=== PATIENT | male | born 1970 | race Caucasian/White ===

== ENCOUNTER 2017-05-26 11:50 | Observation (INO) | payer OTHER ==
[2017-05-26] VITALS (8 sets, daily range): BP systolic 146–180; BP diastolic 86–98; PULSE 70–95; RESP 16–18; TEMP 97.7–98.5; O2SAT 95–99
[~2017-05-26] VITALS: Ht 172.7 cm; Wt 81.0 kg
[~2017-05-26 11:50] MED LIST: LISI-363 PO
[2017-05-26 13:22] LABS: AUTOMATED NEUTROPHIL # 5.3 TH/MM3 (1.8-7.7); BASOPHIL # 0.1 TH/MM3 (0-0.2); BASOPHIL % 0.7 % (0.0-2.0); EOSINOPHIL # 0.3 TH/MM3 (0-0.4); EOSINOPHIL % 2.9 % (0.0-4.0); HEMATOCRIT 46.8 % (39.0-51.0); HEMOGLOBIN 16.5 GM/DL (13.0-17.0); LYMPH % 27.1 % (9.0-44.0); LYMPHOCYTE # 2.5 TH/MM3 (1.0-4.8); MEAN CELL VOLUME 97.4 FL (80.0-100.0); MEAN CORPUSCULAR HEMOGLOBIN 34.4 PG (27.0-34.0); MEAN CORPUSCULAR HGB CONC 35.3 % (32.0-36.0); MONO % 10.6 % (0.0-8.0); NEUT % 58.7 % (16.0-70.0); PLATELET COUNT 170 TH/MM3 (150-450); RED BLOOD COUNT 4.81 MIL/MM3 (4.50-5.90); RED CELL DISTRIBUTION WIDTH 12.6 % (11.6-17.2); WHITE BLOOD COUNT 9.1 TH/MM3 (4.0-11.0)
[2017-05-26 13:36] LABS: PROTHROMBIN TIME - PATIENT 10.2 SEC (9.8-11.6)
[2017-05-26 13:48] LABS: BICARBONATE 26.2 MEQ/L (21.0-32.0); BLOOD UREA NITROGEN 9 MG/DL (7-18); CALCIUM 9.2 MG/DL (8.5-10.1); CHLORIDE 105 MEQ/L (98-107); CREATININE 0.76 MG/DL (0.60-1.30); GLOMERULAR FILTRATION RATE 109 ML/MIN (>89); GLUCOSE,RANDOM 102 MG/DL (74-106); SODIUM (NA) 139 MEQ/L (136-145)
[2017-05-26 13:52] LABS: TROPONIN I LESS THAN 0.02 NG/ML (0.02-0.05)
--- NOTE | 2017-05-26 13:54 | RADRPT ---
EXAM DATE/TIME: 05/26/2017 13:05 [facility] COMPARISON: No previous studies available for comparison. INDICATIONS : Chest pain MEDICAL HISTORY : Hypertension. SURGICAL HISTORY : None. ENCOUNTER: Initial ACUITY: 1 day PAIN SCORE: 3/10 LOCATION: Left chest FINDINGS: PA and lateral views of the chest demonstrate the lungs to be symmetrically aerated without evidence of mass, infiltrate or effusion. The cardiomediastinal contours are unremarkable. Osseous structure s are intact. CONCLUSION: 1. No acute cardiopulmonary findings are identified. Poncho Ugarte MD on May 26, 2017 at 13:51 Board Certified Radiologist. This report was verified electronically.
[2017-05-26] MEDS ORDERED: LISI-515 PO (15:16)
[2017-05-26] MEDS ORDERED: AMLO5TAB2 PO (15:16)
[2017-05-26] MEDS ORDERED: CLON0.1T PO (15:16)
--- NOTE | 2017-05-26 15:19 | PD ---
HPI Chief Complaint: Cardiac Complaint Time Seen by Provider: 15:06 Travel History International Travel<30 days: No Contact w/Intl Traveler<30days: No Traveled to known affect area: No History of Present Illness HPI patient with chest pain today. awoke with it. smoker, htn. has never had heart disease but mother had at age 55. describes chest pressure radiating to back, moderate in intensity. started this morning. PFSH Past Medical History Heart Rhythm Problems: No Cardiac Catheterization: No Cardiovascular Problems: Yes High Cholesterol: No Congestive Heart Failure: No Diabetes: No Hypertension: Yes Past Surgical History Coronary Artery Bypass Graft: No Oral Surgery: Yes ([place]IS[place] TEETH EXTRACTION) Social History Alcohol Use: Yes (6 BEERS PER DAY) Tobacco Use: Yes (1 PPD) Substance Use: No Allergies-Medications (Allergen,Severity, Reaction): Coded Allergies: No Known Allergies (Unverified Allergy, Unknown, 05/26/17) Reported Meds & Prescriptions Reported Meds & Active Scripts Active Reported Clonidine (Clonidine HCl) 0.1 Mg Tab 0.1 Mg PO HS Amlodipine (Amlodipine Besylate) 5 Mg Tab 5 Mg PO DAILY Lisinopril 20 Mg Tab 20 Mg PO DAILY Review of Systems Except as stated in HPI: all other systems reviewed are Neg Physical Exam Narrative GENERAL: wd wn in nad SKIN: Warm and dry. HEAD: Atraumatic. Normocephalic. EYES: Pupils equal and round. No scleral icterus. No injection or drainage. ENT: No nasal bleeding or discharge. Mucous membranes pink and moist. NECK: Trachea midline. No JVD. CARDIOVASCULAR: Regular rate and rhythm. RESPIRATORY: No accessory muscle use. trace expiratory wheezing. Breath sounds equal bilaterally. GASTROINTESTINAL: Abdomen soft, non-tender, nondistended. Hepatic and splenic margins not palpable. MUSCULOSKELETAL: Extremities without clubbing, cyanosis, or edema. No obvious deformities. NEUROLOGICAL: Awake and alert. No obvious cranial nerve deficits. Motor grossly within normal limits. Five out of 5 muscle strength in the arms and legs. Normal speech. PSYCHIATRIC: Appropriate mood and affect; insight and judgment normal. Data Data Last Documented VS Orders Orders Electrocardiogram (05/26/17 12:30) Complete Blood Count With Diff (05/26/17 12:30) Basic Metabolic Panel (Bmp) (05/26/17 12:30) Ckmb (Isoenzyme) Profile (05/26/17 12:30) Troponin I (3/8/18 12:30) Iv Access Insert/Monitor (05/26/17 12:30) Ecg Monitoring (05/26/17 12:30) Oxygen Administration (05/26/17 12:30) Oximetry (05/26/17 12:30) Chest, Pa & Lat (05/26/17 ) Act Partial Throm Time (Ptt) (05/26/17 12:30) Prothrombin Time / Inr (Pt) (05/26/17 12:30) CKMB (05/26/17 12:40) CKMB% (05/26/17 12:40) Aspirin Chew (Aspirin Chew) (05/26/17 15:30) Nitroglycerin Sl (Nitrostat Sl) (05/26/17 15:30) Admit Order (Ed Use Only) (05/26/17 ) Labs Laboratory Tests Test 05/26/17 12:40 White Blood Count 9.1 TH/MM3 Red Blood Count 4.81 MIL/MM3 Hemoglobin 16.5 GM/DL Hematocrit 46.8 % Mean Corpuscular Volume 97.4 FL Mean Corpuscular Hemoglobin 34.4 PG Mean Corpuscular Hemoglobin Concent 35.3 % Red Cell Distribution Width 12.6 % Platelet Count 170 TH/MM3 Mean Platelet Volume 9.0 FL Neutrophils (%) (Auto) 58.7 % Lymphocytes (%) (Auto) 27.1 % Monocytes (%) (Auto) 10.6 % Eosinophils (%) (Auto) 2.9 % Basophils (%) (Auto) 0.7 % Neutrophils # (Auto) 5.3 TH/MM3 Lymphocytes # (Auto) 2.5 TH/MM3 Monocytes # (Auto) 1.0 TH/MM3 Eosinophils # (Auto) 0.3 TH/MM3 Basophils # (Auto) 0.1 TH/MM3 CBC Comment AUTO DIFF Differential Comment AUTO DIFF CONFIRMED Prothrombin Time 10.2 SEC Prothromb Time International Ratio 1.0 RATIO Activated Partial Thromboplast Time 27.8 SEC Blood Urea Nitrogen 9 MG/DL Creatinine 0.76 MG/DL Random Glucose 102 MG/DL Calcium Level 9.2 MG/DL Sodium Level 139 MEQ/L Potassium Level 3.8 MEQ/L Chloride Level 105 MEQ/L Carbon Dioxide Level 26.2 MEQ/L Anion Gap 8 MEQ/L Estimat Glomerular Filtration Rate 109 ML/MIN Total Creatine Kinase 214 U/L Creatine Kinase MB 1.9 NG/ML Troponin I LESS THAN 0.02 NG/ML MDM Medical Decision Making Medical Screen Exam Complete: Yes Emergency Medical Condition: Yes Differential Diagnosis ACS, pneumonia unlikely, non-STEMI, coronary artery disease Narrative Course chest pain with risk factors and initial workup negative. recommended admission to [facility] and he is agreeable. Diagnosis Primary Impression: Chest pain Admitting Information Admitting Physician Requests: Observation Scripts Aspirin (Tgt Aspirin) 81 Mg Chw 81 MG PO DAILY for CAD, #30 EA 0 Refills Prov: Les Red MD 05/28/17 Metoprolol Tartrate (Metoprolol Tartrate) 25 Mg Tab 12.5 MG PO BID for HTN, #60 TAB 0 Refills Hold for systolic blood pressure in 100 mm HG or below or for Heart rate in 60 or below Prov: Les Red MD 05/28/17 Atorvastatin (Atorvastatin) 80 Mg Tab 80 MG PO HS for CAD, #30 TAB 0 Refills Prov: Les Red MD 05/28/17 Ticagrelor (Brilinta) 90 Mg Tab 90 MG PO BID for CAD, #60 TAB 0 Refills Prov: Les Red MD 05/28/17 Condition: Stable JoseM anuel Lindsay MD May 26, 2017 15:19
[2017-05-26] MEDS ORDERED: IOHEXOL 350 MG/ML 100 ML BTL (for Cath Lab) OTHER ONE (15:22)
[2017-05-26] MEDS ORDERED: IOHEXOL 350 MG/ML 50 ML BTL (for Cath Lab) OTHER ONE (15:22)
[2017-05-26] MEDS ORDERED: NITROGLYCERIN 0.4 MG SL 25 TABS/BTL SL ONE (15:30)
[2017-05-26] MEDS ORDERED: ASPIRIN 81 MG CHEW TAB CHEW ONE (15:30)
[2017-05-26] MEDS ORDERED: SODIUM CHLORIDE 0.9% FLUSH 10 ML FLUSH IV FLUSH PRN (17:15)
[2017-05-26] MEDS ORDERED: ONDANSETRON HCL 4 MG/2 ML VIAL IV PUSH PRN (17:15)
[2017-05-26] MEDS ORDERED: NITROGLYCERIN 0.4 MG SL 25 TABS/BTL SL PRN (17:15)
[2017-05-26] MEDS ORDERED: ACETAMINOPHEN 500 MG CPLT PO PRN (17:15)
[2017-05-26 18:22] LABS: TROPONIN I LESS THAN 0.02 NG/ML (0.02-0.05)
--- NOTE | 2017-05-26 18:48 | HHI.HP ---
HPI Primary Care Physician Urgent care in [place] Chief Complaint Chest pressure History of Present Illness 47-year-old male with history of hypertension and current smoker presents to emergency room for further evaluation of chest pressure. 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 During the afternoon noticed chest pressure. Location left anterior chest, radiation substernally. No associated symptoms nausea, vomiting, dyspnea, or diaphoresis. [place] dizzy. Duration chest pressure constant , dizziness resolved. No known precipitating or relieving factors. Endorses similar pain and symptoms in the past 3 years ago when diagnosed with hypertension. Since discomfort reminded him of when he was diagnosed with hypertension, drove to [facility] to check his blood pressure. Reports bp 170/100, therefore came to ER. Reports compliance with BP medications. Review of Systems General: No fatigue,weakness, fever, chills, or recent illness change in appetite. Has been encouraged onset health. HEENT: No [place], no vision changes, no nasal congestion or drainage, no dysphasia CV: Continues to have chest pressure as stated above, left anterior chest severity "moderate and substernal discomfort "mild." RESP: No SOB, cough, or recent URI. Current smoker, reports noticing wheezing x2 months. GI: No nausea, vomiting, bowel changes, diarrhea, constipation, pain, distention , melena, blood in the stool. No unintentional weight gain or weight loss : No dysuria, urgency, frequency EXT: No lower leg edema, no paraesthesias MS: No discomfort or change in ROM NEURO: No change in memory, dizziness, difficulty with balance, LOC, motor/ sensory deficits PSYCH: No anxiety, depression, suicidal ideation SKIN: No rashes, no concerning lesions Past Family Social History Allergies: Coded Allergies: No Known Allergies (Unverified Allergy, Unknown, 05/26/17) Past Medical History Hypertension, current smoker Past Surgical History [place] teeth extraction Reported Medications Reported Meds & Active Scripts Active Reported Clonidine (Clonidine HCl) 0.1 Mg Tab 0.1 Mg PO HS Amlodipine (Amlodipine Besylate) 5 Mg Tab 5 Mg PO DAILY Lisinopril 20 Mg Tab 20 Mg PO DAILY Active Ordered Medications Current Medications Medications (Trade) Dose Ordered Sig/Rubio Route Start Time Stop Time Status Last Admin (NS Flush) 2 ml UNSCH PRN IV FLUSH 05/26/17 17:15 (NS Flush) 2 ml BID IV FLUSH 05/26/17 21:00 (Tylenol) 500 mg Q4H PRN PO 05/26/17 17:15 (Zofran Inj) 4 mg Q6H PRN IV PUSH 05/26/17 17:15 (Nitrostat Sl) 0.4 mg Q5M PRN SL 05/26/17 17:15 (Aspirin) 325 mg DAILY PO 05/27/17 09:00 Family History Noncontributory for early onset cardiovascular disease. Mother required CABG age 60. Social History Known hypertension. No known diabetes, hyperlipidemia, or coronary artery disease. Current smoker 1pack/daily. Endorse drinking 6 beers nightly. . Past cardiac testing 08/17/13 Lexiscan-unremarkable study Physical Exam Vital Signs Vital Signs Date Time Temp Pulse Resp B/P (MAP) Pulse Ox O2 Delivery O2 Flow Rate FiO2 05/26/17 18:24 05/26/17 18:00 76 18 160/86 (110) 96 Room Air 05/26/17 17:04 70 18 180/96 (124) 96 Room Air 05/26/17 15:24 18 99 Room Air 05/26/17 15:14 88 18 146/90 (108) 99 Room Air 05/26/17 15:13 96 18 97 Room Air 05/26/17 12:28 97.7 78 16 169/94 (119) 96 Physical Exam GENERAL: Alert WN, WD, NAD, pleasant, male HEAD: NC, AT EYES: Sclera clear, conjunctiva without injection, pupils equal and round ENT: Mucous membranes pink and moist NECK: Supple, no masses, trachea midline CV: RRR, without murmur, rub, gallop, no JVD, S1-S2 no S3-S4. No carotid bruits RESP: Expiratory wheeze throughout bilateral, no crackles, wheeze, rhonchi, symmetrical chest rise, nonlabored, able to speak in full sentences ABD: Soft, NT, ND, no masses, positive bowel tones EXT: Pulses +24, no dependent edema MS: Normal tone 4 extremities, nontender, no obvious deformities, full range of motion NEURO: CN II through CN XII grossly intact, motor strength 5/5 PSYCH: A+O 3, pleasant affect, appropriate speech, mood, insight and judgment SKIN: Normal turgor, normal texture, no lesions, no rashes, brisk cap refill, even hair distribution Laboratory Laboratory Tests Test 05/26/17 12:40 05/26/17 17:05 White Blood Count 9.1 Red Blood Count 4.81 Hemoglobin 16.5 Hematocrit 46.8 Mean Corpuscular Volume 97.4 Mean Corpuscular Hemoglobin 34.4 Mean Corpuscular Hemoglobin Concent 35.3 Red Cell Distribution Width 12.6 Platelet Count 170 Mean Platelet Volume 9.0 Neutrophils (%) (Auto) 58.7 Lymphocytes (%) (Auto) 27.1 Monocytes (%) (Auto) 10.6 Eosinophils (%) (Auto) 2.9 Basophils (%) (Auto) 0.7 Neutrophils # (Auto) 5.3 Lymphocytes # (Auto) 2.5 Monocytes # (Auto) 1.0 Eosinophils # (Auto) 0.3 Basophils # (Auto) 0.1 CBC Comment AUTO DIFF Differential Comment AUTO DIFF CONFIRMED Prothrombin Time 10.2 Prothromb Time International Ratio 1.0 Activated Partial Thromboplast Time 27.8 Blood Urea Nitrogen 9 Creatinine 0.76 Random Glucose 102 Calcium Level 9.2 Sodium Level 139 Potassium Level 3.8 Chloride Level 105 Carbon Dioxide Level 26.2 Anion Gap 8 Estimat Glomerular Filtration Rate 109 Total Creatine Kinase 214 194 Creatine Kinase MB 1.9 1.8 Troponin I LESS THAN 0.02 LESS THAN 0.02 Result Diagram: 05/26/17 1240 05/26/17 1240 Imaging Last 48 hours Impressions Chest X-Ray 05/26/17 0000 Signed Impressions: Service Date/Time: May 13:05 - CONCLUSION: 1. No acute cardiopulmonary findings are identified. Poncho Ugarte MD Course EKG Normal sinus rhythm, no ST or T-segment changes Caprini VTE Risk Assessment Caprini VTE Risk Assessment: No/Low Risk (score <= 1) Caprini Risk Assessment Model Point Value = 1 Point Value = 2 Point Value = 3 Point Value = 5 Age 41-60 Minor surgery BMI > 25 kg/m2 Swollen legs Varicose veins or History of unexplained or recurrent spontaneous Oral contraceptives or hormone replacement Sepsis (< 1 month) Serious lung disease, including pneumonia (< 1 month) Abnormal pulmonary function Acute myocardial infarction Congestive heart failure (< 1 month) History of inflammatory bowel disease Medical patient at bed rest Age 61-74 Arthroscopic surgery Major open surgery (> 45 min) Laparoscopic surgery (> 45 min) Malignancy Confined to bed (> 72 hours) Immobilizing plaster cast Central venous access Age >= 75 History of VTE Family history of VTE Factor V Leiden Prothrombin [id number] Lupus anticoagulant Anticardiolipin antibodies Elevated serum homocysteine Heparin-induced thrombocytopenia Other congenital or acquired thrombophilia Stroke (< 1 month) Elective arthroplasty Hip, pelvis, or leg fracture Acute spinal cord injury (< 1 month) Prophylaxis Regimen Total Risk Factor Score Risk Level Prophylaxis Regimen 0-1 Low Early ambulation 2 Moderate Order ONE of the following: *Sequential Compression Device (SCD) *Heparin 5000 units SQ BID 3-4 Higher Order ONE of the following medications: *Heparin 5000 units SQ TID *Enoxaparin/Lovenox 40 mg SQ daily (WT < 150 kg, CrCl > 30 mL/min) *Enoxaparin/Lovenox 30 mg SQ daily (WT < 150 kg, CrCl > 10-29 mL/min) *Enoxaparin/Lovenox 30 mg SQ BID (WT < 150 kg, CrCl > 30 mL/min) AND/OR *Sequential Compression Device (SCD) 5 or more Highest Order ONE of the following medications: *Heparin 5000 units SQ TID (Preferred with Epidurals) *Enoxaparin/Lovenox 40 mg SQ daily (WT < 150 kg, CrCl > 30 mL/min) *Enoxaparin/Lovenox 30 mg SQ daily (WT < 150 kg, CrCl > 10-29 mL/min) *Enoxaparin/Lovenox 30 mg SQ BID (WT < 150 kg, CrCl > 30 mL/min) AND *Sequential Compression Device (SCD) Assessment and Plan Assessment and Plan #1 Atypical chest pain-admitted chest pain center. Rule out with 3 sets of EKGs , cardiac enzymes, and monitored to monitor overnight. Will be seen and evaluated by Dr. Andrew Agosto in a.m. Discussed likely of completing cardiac testing has been ruled out overnight. Patient is agreeable to plan of care. #2 Hypertension-continue lisinopril, amlodipine, and clonidine #3 Tobacco use-she'll encouraged and stressed the importance of tobacco cessation. Started to quit smoking. Discussed tobacco free [place] services available. Carrol Hercules May 26, 2017 18:48
[2017-05-26] MEDS ORDERED: cloNIDine HCL 0.1 MG TAB PO PRN (19:00)
[2017-05-26] MEDS: amLODIPine BESYLATE 5 MG TAB PO SCH (19:00)
[2017-05-26] MEDS: SODIUM CHLORIDE 0.9% FLUSH 10 ML FLUSH IV FLUSH SCH (20:16)
[2017-05-26] MEDS ORDERED: RESP: ALBUTEROL 2.5 MG/3 ML NEB (PRN) INH (20:45)
[2017-05-26 21:49] LABS: TROPONIN I LESS THAN 0.02 NG/ML (0.02-0.05)
[2017-05-27] VITALS (15 sets, daily range): BP systolic 120–156; BP diastolic 75–99; PULSE 61–95; RESP 18–20; TEMP 98–98.6; O2SAT 93–98
[2017-05-27] MEDS: SODIUM CHLORIDE 0.9% FLUSH 10 ML FLUSH IV FLUSH SCH ×2 (08:14→20:24)
[2017-05-27] MEDS: amLODIPine BESYLATE 5 MG TAB PO SCH (08:14)
[2017-05-27] MEDS: LISINOPRIL 20 MG TAB PO SCH (08:14)
--- NOTE | 2017-05-27 08:39 | EKG ---
Date Performed: 05/26/2017 Time Performed: 20:16:00 PTAGE: 47 years EKG: Sinus rhythm WITH MARKED SINUS ARRHYTHMIA NONSPECIFIC ST & T-WAVE ABNORMALITY BORDERLINE ECG PREVIOUS TRACING : 05/26/2017 17.17 Since previous tracing, no significant change noted DOCTOR: Andrew Agosto Interpretating Date/Time 05/27/2017 08:38:11
--- NOTE | 2017-05-27 08:41 | EKG ---
Date Performed: 05/26/2017 Time Performed: 17:17:40 PTAGE: 47 years EKG: Sinus rhythm NORMAL ECG PREVIOUS TRACING : 05/26/2017 15.07 Since previous tracing, no significant change noted DOCTOR: Andrew Agosto Interpretating Date/Time 05/27/2017 08:40:40
--- NOTE | 2017-05-27 08:43 | EKG ---
Date Performed: 05/26/2017 Time Performed: 15:07:18 PTAGE: 47 years EKG: Sinus rhythm WITH SINUS ARRHYTHMIA NORMAL ECG PREVIOUS TRACING : 08/16/2013 18.54 Since previous tracing, no significant change noted DOCTOR: Andrew Agosto Interpretating Date/Time 05/27/2017 08:42:03
[2017-05-27] MEDS ORDERED: ASPIRIN 325 MG TAB PO SCH (09:00)
--- NOTE | 2017-05-27 11:47 | RADRPT ---
EXAM DATE/TIME: 05/27/2017 09:44 [facility] COMPARISON: MYOCARDIAL PERF TREADMILL SPECT, GATED W/EF, August 17, 2013, 8:54. INDICATIONS : Left chest pain for one day. Angina DOSE: 25.5 mCi Tc99m Myoview at stress 8.5 mCi Tc99m Myoview at rest REST HEART RATE: 96 BPM TARGET HEART RATE: 145 BPM MAX HEART RATE: 146 BPM REST BLOOD PRESSURE: 132/78 mmHg MAX BLOOD PRESSURE: 158/70 mmHg EJECTION FRACTION: 46% MEDICAL HISTORY : Hypertension. SURGICAL HISTORY : None. ENCOUNTER: Initial ACUITY: 1 day PAIN SCALE: 10/10 LOCATION: Left chest TECHNIQUE: The patient underwent upright treadmill exercise in the chest pain center. Continuous ECG tracing wa s monitored during stress. Gated SPECT imaging was performed after stress, and conventional SPECT im aging was performed at rest. The examination was performed on a SPECT/CT scanner, both attenuation-c orrected and non-corrected datasets were reviewed. FINDINGS: DISTRIBUTION: The maximum perfused segment at stress is in the anteroseptal wall. PERFUSION STUDY: The pattern of perfusion at stress shows absent perfusion to most of the lateral wall. There is upwar ds of 20% redistribution in focal areas of the high inferior wall GATED STUDY: There is intact wall motion and thickening without hypokinetic or dyskinetic segments. 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 2. Scintigraphic findings suggest focal ischemia in the high inferoseptal wall. This is only identifi ed on 2 or 3 slices. 3. Anterolateral hypokinesis with a reduced ejection fraction of 46%. RISK CATEGORY: Intermediate (1-3% Annual Mortality Rate) Guanako Rodas MD on May 27, 2017 at 11:36 Board Certified Radiologist. This report was verified electronically.
--- NOTE | 2017-05-27 14:33 | PD.CARD.PN ---
Subjective Subjective Remarks No further complaints Objective Medications Current Medications Medications (Trade) Dose Ordered Sig/Rubio Route Start Time Stop Time Status Last Admin (NS Flush) 2 ml UNSCH PRN IV FLUSH 05/26/17 17:15 (NS Flush) 2 ml BID IV FLUSH 05/26/17 21:00 05/27/17 08:14 (Tylenol) 500 mg Q4H PRN PO 05/26/17 17:15 (Zofran Inj) 4 mg Q6H PRN IV PUSH 05/26/17 17:15 (Nitrostat Sl) 0.4 mg Q5M PRN SL 05/26/17 17:15 (Aspirin) 325 mg DAILY PO 05/27/17 09:00 05/27/17 08:13 (Norvasc) 5 mg DAILY PO 05/26/17 19:00 05/27/17 08:14 (Prinivil) 20 mg DAILY PO 05/27/17 09:00 05/27/17 08:14 (Catapres) 0.1 mg Q6H PRN PO 05/26/17 19:00 05/26/17 20:16 (Albuterol Neb) 2.5 mg Q2HR NEB PRN INH 05/26/17 20:45 Vital Signs / I&O Vital Signs Date Time Temp Pulse Resp B/P (MAP) Pulse Ox O2 Delivery O2 Flow Rate FiO2 05/27/17 11:45 98.0 83 18 128/76 (93) 93 05/27/17 08:00 94 05/27/17 07:56 98.0 75 19 120/80 (93) 93 05/27/17 04:10 64 05/27/17 03:44 98.1 61 18 137/77 (97) 94 05/27/17 01:18 98.4 68 18 156/93 (114) 98 05/27/17 00:35 71 05/26/17 21:53 98 05/26/17 21:04 95 05/26/17 20:05 98.5 83 18 170/98 (122) 95 05/26/17 18:24 05/26/17 18:00 76 18 160/86 (110) 96 Room Air 05/26/17 17:04 70 18 180/96 (124) 96 Room Air 05/26/17 15:24 18 99 Room Air 05/26/17 15:14 88 18 146/90 (108) 99 Room Air 05/26/17 15:13 96 18 97 Room Air Physical Exam Alert A+Ox3, RRR, no murmur, lungs clear throughout, even breath sounds, abdominal soft, +BS, no peripheral edema. 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 2. Scintigraphic findings suggest focal ischemia in the high inferoseptal wall. This is only identified on 2 or 3 slices. 3. Anterolateral hypokinesis with a reduced ejection fraction of 46%%. RISK CATEGORY: Intermediate (1-3%% Annual Mortality Rate) Guanako Rodas MD Assessment and Plan Assessment and Plan Lexiscan conclusion: 1. 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 2. Scintigraphic findings suggest focal ischemia in the high inferoseptal wall. This is only identified on 2 or 3 slices. 3. Anterolateral hypokinesis with a reduced ejection fraction of 46%. Reviewed with Dr. Agosto and notified Dr. Willingham of new consult. Discussed with patient possible cardiac catheterization later this afternoon. Verbalized understanding. Carrol Hercules May 27, 2017 14:33
[2017-05-27] MEDS ORDERED: HEPARIN-NS/PF FLUSH BAG 2,000 ML IV FLUSH ONE (14:57)
[2017-05-27] MEDS ORDERED: VERAPAMIL HCL 5 MG/2 ML VIAL ONE (14:58)
[2017-05-27] MEDS ORDERED: HEPARIN SODIUM - IV 10,000 UNITS/10 ML VIAL ONE (14:58)
[2017-05-27] MEDS ORDERED: NITROGLYCERIN INJ 5 ML ONE (14:58)
[2017-05-27] MEDS ORDERED: MIDAZOLAM HCL 2 MG/2 ML VIAL ONE (15:03)
[2017-05-27] MEDS ORDERED: TICAGRELOR 90 MG TAB PO ONE (16:02)
--- NOTE | 2017-05-27 16:17 | CATHPROC ---
Preclick HIS Report Study Information Study Number Admission Scheduled Start Study Start [id number] May 26 2017 3:21PM 05/27/2017 May 27 2017 2:51PM [place] Service Cardiac Catheterization Admit Source Facility Department Emergency department [facility] Physician and Clinical Staff Initial MD Willingham, Antolin Resilient Tile Installer Christ York,ROYA Other cathlab, cathlab Recorder Erin Mendoza BSN Scrub Pinky Guevara,TOOTH CUTTER PINION TECH2 Procedures Performed Procedure Location (Site) Vessel Name Coronary Angiograms LCA Left Coronary Coronary Angiograms RCA Right Coronary Drug Eluting Inflatio CIRC Dist CIRC L Heart Cath PTCA CIRC Dist CIRC Wire insertion Radial (right) Radial Art. Equipment Time Cryolite Recovery Operator Description Size Mfg Part Number Used/Scraped WIRE, BALANCE MIDDLEWEIGHT [id number] 15:42 [employer] 190CM Used 190CM *[id number] TRANSDUCER, TRUWAVE [id number] 14:56 MENDOZA NAVARRO * Used W/STOCKCOCK *[id number] BALLOON, 2.25 12[place] [id number] 16:01 [employer] 2.25 12MM Used QUANTUM APEX MR *[id number] 534-518T *[id number] 534-521T *[id number] 14:56 Orck[employer] PACK, CCL CUSTOM * Used *[id number] 14:56 [employer]ck[employer]ra SUPPORT, ARTERIAL ADULT 03468 *[id number] Used [id number] 15:44 MEDTRONIC BALLOON, 2.0 X 10MM EUPHORA 10MM Used *[id number] 15:56 [employer]TRONIC STENT, 2.25 18MM JD 2.25 18MM Used *[id number] 15:40 MEDTRONIC/AVE EBU 3.5 Z2 GUIDE CATHETER FR 6 Used *[id number] 15:52 [employer] MEDICAL 30 FILIBERTO INDEFLATOR Used *[id number] BAND, RADIAL COMPRESSION TR [id number] 15:36 [employer] MEDICAL 24CM Used SHORT 24 *1066057 [id number] 14:56 [employer] WIRE, EXCHANGE 260CM 3MMJ 260CM Used *[id number] 14:56 NAMIC MANIFOLD, 4 PORT * Used *[id number] 14:56 [employer]COMED OMNIPAQUE, 350 MG, 150ML 150ML [id number] Used [id number] 14:56 BEAR [employer] BLANKET,WARM AIR CCL * Used *[id number] SHEATH, FR6 TRANSRADIAL *[id number] 14:56 Linksy FR 6 Used SLENDER 10CM *[id number] Equipment Model, Serial, Lot Number and Expiration Data Description Model Number Serial Number Lot Number Expiration Date STENT, 2.25 18MM JD [id number] 02-18-2019 History: Allergies Allergy Reaction No Known Allergies History: Risk Factors Family History of Hypertension Dyslipidemia Previous AK Previous Heart Failure Premature CAD Yes No No No No Prior Valve Prior PCI Prior CABG Surgery No No No Cerebrovascular Peripheral Artery Chronic Lung On Dialysis Diabetes Disease Disease Disease No No No No No History: Stress Tests Stress or Imaging Studies Performed Yes Standard Exercise Stress Test No Stress Echo No Stress Test SPECT Stress Test SPECT Result Stress Test SPECT Ischemia Risk/Extent Yes Positive Intermediate Stress Test CMR No Cardiac CTA Coronary Calcium Score No No History: Other Current Smoker Method Packs a Day Years Used Pack Years Yes Cigarettes 04 20 31 Labs Hgb (g/dl) Hct (%) WBC (l/cumm) Platelets (thousands) 11.60-17.00 35.00-51.00 4.00-11.00 150.00-450.00 16.5 46.8 9.1 170 Glucose (mg/dl) BUN (mg/dl) Creatinine (mg/dl) BUN:Creatinine (1:x) 74.00-106.00 7.00-18.00 0.50-1.30 10.00-20.00 102 9 0.7 12.9 Na (meq/l) K (meq/l) 136.00-145.00 3.50-5.10 139 3.8 INR (PTT:PT) 0.90-1.10 1 Troponin I (ng/ml) Troponin T (ng/ml) CPK (u/l) CPK-MB (ng/ML) 0.02-0.05 0.40-2.10 26.00-308.00 0.50-3.60 0.02 0.02 176 1.6 Medication Medication Total Dose (Bolus/Oral) Medication Total Dosage/Unit 1% XYLOCAINE 10 mL BRILINTA 180 mg FENTANYL 50 mcg HEPARIN 2500 units RADIAL COCKTAIL 5 mL (Bolus) VERSED 1 mg Medications (Bolus/Oral) Medication Time Given Dosage/Unit Administered By Reason VERSED 05/27/2017 3:19:25 PM 1 mg Christ York 1 mg VERSED given in lab by Christ York RN in Left Antecubital via Peripheral IV. Ordered by Antolin Gurrola FENTANYL 05/27/2017 3:19:45 PM 50 mcg Christ York 50 mcg FENTANYL given in lab by Christ York RN in Right Antecubital via Peripheral IV. Ordered by Antolin Willingham 1% XYLOCAINE 05/27/2017 3:23:31 PM 10 mL Antolin Willingham 10 mL 1% XYLOCAINE given in lab by Antolin Willingham in Right Radial via Subcutaneous. Ordered by Antolin Heck RADIAL COCKTAIL 05/27/2017 3:24:59 PM 5 mL (Bolus) Antolin Willingham 5 mL (Bolus) RADIAL COCKTAIL given in lab by Antolin Willingham via Radial. Ordered by Zaid Willingham Reason: Ntg 200mcg Verapamil 2.5mg Heparin 3200U. HEPARIN 05/27/2017 3:40:36 PM 1500 units Christ York 1500 units HEPARIN given in lab by Christ York RN in Left Antecubital via Peripheral IV. Ordered by Antolin Willingham HEPARIN 05/27/2017 3:56:10 PM 1000 units Christ York 1000 units HEPARIN given in lab by Christ York RN in Left Antecubital via Peripheral IV. Ordered by Antolin Willingham BRILINTA 05/27/2017 4:13:27 PM 180 mg Christ York 180 mg BRILINTA given in lab by Christ York RN via Oral. Ordered by Antolin Willingham Medication (Drip) Medication Time Given Dosage/Unit Concentration/Unit Diluent (ml) Solutio n IV Solutions 05/27/2017 2:55:09 PM 0 mL (IV) 500 NaCl .9 Patient arrived on IV Solutions given by cathkrystal slater in Left Antecubital via Peripheral IV. Pump /Drip Flow = 20 ml/hr using NaCl .9. Ordered by Antolin Willingham Initial Case Assessment Cardiovascular HR Rhythm NIBP Chest Pain 85 nsr 174/109 0 Edema Present Skin color Skin None Normal Warm Dry Circulatory - Right Pulses Dorsalis Pedis Femoral Radial 1 2 2 Scale (0,1,2,3,4,d) Circulatory - Left Pulses Dorsalis Pedis Femoral Radial 1 2 Scale (0,1,2,3,4,d) Circulatory - Lower Extremities Color Lower Right Color Lower Left Normal Normal Neurological State Oriented to time-place- Alert Moves all extremities person Respiration - General Respiration Rate SpO2 (%) (B/min) 15 96 Final Case Assessment Cardiovascular HR Rhythm NIBP Chest Pain 72 nsr 174/109 0 Edema Present Skin color Skin None Normal Warm Dry Circulatory - Right Pulses Dorsalis Pedis Femoral Radial 1 2 2 Scale (0,1,2,3,4,d) Circulatory - Left Pulses Dorsalis Pedis Femoral Radial 1 2 Scale (0,1,2,3,4,d) Circulatory - Lower Extremities Color Lower Right Color Lower Left Normal Normal Neurological State Oriented to time-place- Alert Moves all extremities person Respiration - General Respiration Rate SpO2 (%) (B/min) 20 92 Chronological Log Time Study Chronological Log 14:54:58 Patient arrived via Bed. 14:54:59 Patient Name, D.O.B, / Armband Verified By R.N. 14:54:59 Consent signed by the physician and the patient and verified by the [facility] staff. 14:55:00 Pre-op and post- op instructions given; patient acknowledges understanding of instructions. 14:55:00 Verbal Stimulation=2 Physical Stimulation=2 Airway=2 Respiration=2 TOTAL=8. (0=absent, 1=li mited, 2=present) 14:55:01 Presedation assessment performed by [facility] [place] [facility] RN. 14:55:02 Allens test performed on the right radial and ulnar artery. POSITIVE. 14:55:03 Immediate Presedation assesment performed by physician. 14:55:03 Patient has been NPO for More than 6Hrs. 14:55:04 Skin Breakdown- none per patient 14:55:08 A # 20 IV was noted in the Antecubital (left). Grade = 0 Patient arrived on IV Solutions given by cathlab, cathlab in Left Antecubital via Peripheral IV . Pump/Drip Flow = 20 14:55:09 ml/hr using NaCl .9. Ordered by Antolin Willingham 14:55:10 History and physical on the chart or being dictated. 14:58:06 Timmy Prominences Protected 14:58:50 Reference ECG taken 14:59:50 Patient Warmer Placed on the Table. Vitals capture started with the following parameters, Patient=Adult, Interval=5 min, Initial Pr xjwbef=924 mmHg, 15:00:11 Deflation Rate=5 mmHg, Cuff placed on Left Leg Assessment: Initial Case, HR=85 BPM, Rhythm=nsr, YFLN=811/109 mmhg, Chest Pain=0, Edema=None, Color=Normal, Skin = Warm, Dry Right Pulses: Isidro Ped=1, Femoral=2, Radial=2 Left Pulses: Isidro Ped=1, Femoral=2 15:00:11 Lower Right Extremities: Color=Normal Lower Left Extremities: Color=Normal Neurological: State=Alert, Ox3, ALFARO Respiration: Resp=15 B/min, SpO2=96 % Vitals capture started with the following parameters, Patient=Adult, Interval=5 min, Initial Pr dyhyli=939 mmHg, 15:01:57 Deflation Rate=5 mmHg, Cuff placed on Left Leg 15:03:19 HR=98 bpm, DFCL=244/109 mmhg, SpO2=96.0 %, Resp=13 B/min, Pain=0, Bonny=10, Jennings=2 15:06:46 Right Radial and groin(s) prepped with 2% chlorhexidine, and draped after a 3 min. waiting time. 15:07:39 HR=73 bpm, MNDX=063/100 mmhg, SpO2=96.0 %, Resp=13 B/min, Pain=0, Bonny=10, Jennings=2 15:11:19 Pressure channel 1 zeroed. 15:12:40 HR=89 bpm, TARA=743/101 mmhg, SpO2=95.0 %, Resp=10 B/min, Pain=0, Bonny=10, Jennings=2 15:12:46 MD paged 15:17:39 HR=89 bpm, AVSE=001/97 mmhg, SpO2=95.0 %, Resp=15 B/min, Pain=0, Bonny=10, Jennings=2 15:17:51 MD arrived. 15:19:25 1 mg VERSED given in lab by Christ York, RN in Left Antecubital via Peripheral IV. Order ed by Antolin Willingham. 50 mcg FENTANYL given in lab by Christ York, RN in Right Antecubital via Peripheral IV. Orde red by Antolin Willingham 15:19:45 G. 15:22:38 HR=82 bpm, UMQS=041/102 mmhg, SpO2=95.0 %, Resp=15 B/min, Pain=0, Bonny=10, Jennings=2 Time Out. Correct patient, correct procedure, correct physician, power injector loaded, or not loaded with contrast with 15:23:24 surgical team present. Time Out Concurred by MD and individual staff in procedure. 15:23:26 Case Start 10 mL 1% XYLOCAINE given in lab by Antolin Willingham in Right Radial via Subcutaneous. Ordere d by Maulik, 15:23:31 Antolin Mazariegos. 15:24:14 Access site was Radial Artery. A SHEATH, FR6 TRANSRADIAL SLENDER 10CM FR 6 was advanced into the Radial (right) using the Perc utaneous 15:24:30 technique. 5 mL (Bolus) RADIAL COCKTAIL given in lab by Antolin Willingham via Radial. Ordered by Antolin Soto 15:24:59 Reason: Ntg 200mcg Verapamil 2.5mg Heparin 3200U. A JR 4.0 INFINITI CATHETER FR 5 was advanced over a wire. OMNIPAQUE, 350 MG, 150ML 150ML was us ed for 15:26:10 injections. Recorded Pressure: LV, ZW=461, Condition=Condition 1 15:26:58 (Left Ventricle) LV 137/1/4 Recorded Pressure: LV, Ao, JR=203, Condition=Condition 1 15:27:06 (Left Ventricle) LV 139/4/6, (Aorta) Ao 125/80/98 15:27:33 XI=029 bpm, CCTN=305/90 mmhg, SpO2=88.0 %, Resp=19 B/min, Pain=0, Bonny=10, Jennings=2 15:28:09 The RCA was injected and visualized at various angles. OMNIPAQUE, 350 MG, 150ML 150ML used . After removing the current catheter a JL 3.5 INFINITI CATHETER FR 5 was advanced over a WIRE, E XCHANGE 260CM 15:28:41 3MMJ 260CM. 15:32:07 The LCA was injected and visualized at various angles. OMNIPAQUE, 350 MG, 150ML 150ML used . 15:32:35 HR=99 bpm, GJVZ=306/87 mmhg, SpO2=90 %, Resp=19 B/min, Pain=0, Bonny=10, Jennings=2 15:37:36 HR=89 bpm, LDLZ=360/89 mmhg, SpO2=90 %, Resp=17 B/min, Pain=0, Bonny=10, Jennings=2 After removing the current catheter a EBU 3.5 Z2 GUIDE CATHETER FR 6 was advanced over a WIRE, EXCHANGE 15:40:14 260CM 3MMJ 260CM. 1500 units HEPARIN given in lab by Christ York, ROAY in Left Antecubital via Peripheral IV. Or dered by Antolin Willingham 15:40:36 G. 15:42:37 HR=81 bpm, QZEK=730/84 mmhg, SpO2=91 %, Resp=18 B/min, Pain=0, Bonny=10, Jennings=2 15:43:56 A WIRE, BALANCE MIDDLEWEIGHT 190CM 190CM was inserted via Radial (right). 15:47:36 HR=82 bpm, NWUL=303/82 mmhg, SpO2=91.0 %, Resp=17 B/min, Pain=0, Bonny=10, Jennings=2 15:49:08 Interventional wire has crossed the lesion 15:49:59 Activated Clotting Time Drawn 15:50:06 A balloons was inserted over WIRE, BALANCE MIDDLEWEIGHT 190CM 190CM via the Radial (right). A BALLOON, 2.0 X 10MM EUPHORA 10MM over a WIRE, BALANCE MIDDLEWEIGHT 190CM 190CM in the CIRC Di st was 15:51:03 inflated using a 30 FILIBERTO INDEFLATOR at 14 filiberto for 10 sec. A BALLOON, 2.0 X 10MM EUPHORA 10MM over a WIRE, BALANCE MIDDLEWEIGHT 190CM 190CM in the CIRC Di st was 15:51:53 inflated using a 30 FILIBERTO INDEFLATOR at 14 filiberto for 10 sec. 15:52:35 HR=81 bpm, PFFE=961/82 mmhg, SpO2=91.0 %, Resp=18 B/min, Pain=0, Bonny=10, Jennings=2 15:53:24 Balloon Removed. 15:53:27 ACT (Normal Range 90-180) = 268 A STENT, 2.25 18MM JD 2.25 18MM was advanced through a EBU 3.5 Z2 GUIDE CATHETER FR 6 over a WIRE, 15:54:51 BALANCE MIDDLEWEIGHT 190CM 190CM. 1000 units HEPARIN given in lab by Christ York RN in Left Antecubital via Peripheral IV. Or dered by Antolin Willingham 15:56:10 G. A STENT, 2.25 18MM JD 2.25 18MM was deployed using a 30 FILIBERTO INDEFLATOR at 12 atmospheres for 30 seconds 15:57:00 in the CIRC Dist. 15:57:34 HR=75 bpm, ERIL=378/88 mmhg, SpO2=91.0 %, Resp=17 B/min, Pain=0, Bonny=10, Jennings=2 15:58:04 Delivery device removed A BALLOON, 2.25 12MM NC QUANTUM APEX MR 2.25 12MM was inserted over WIRE, BALANCE MIDDLEWEIGHT 190CM 16:01:28 190CM via the Radial (right). A BALLOON, 2.25 12MM NC QUANTUM APEX MR 2.25 12MM over a WIRE, BALANCE MIDDLEWEIGHT 190CM 190CM in 16:02:17 the CIRC Dist was inflated using a 30 FILIBERTO INDEFLATOR at 12 filiberto for 10 sec. 16:02:39 HR=72 bpm, LOIA=529/88 mmhg, SpO2=92.0 %, Resp=19 B/min, Pain=0, Bonny=10, Jennings=2 A BALLOON, 2.25 12MM NC QUANTUM APEX MR 2.25 12MM over a WIRE, BALANCE MIDDLEWEIGHT 190CM 190CM in 16:03:09 the CIRC Dist was inflated using a 30 FILIBERTO INDEFLATOR at 16 filiberto for 15 sec. 16:03:20 Balloon Removed. 16:05:50 Wire removed 16:05:59 A WIRE, EXCHANGE 260CM 3MMJ 260CM was inserted via Radial (right). 16:06:20 Catheter and wire removed 16:06:40 Case End 16:07:00 A Left Heart Cath was performed. Assessment: Final Case, HR=72 BPM, Rhythm=nsr, FBIN=410/109 mmhg, Chest Pain=0, Edema=None, Col or=Normal, Skin = Warm, Dry Right Pulses: Isidro Ped=1, Femoral=2, Radial=2 Left Pulses: Isidro Ped=1, Femoral=2 16:07:17 Lower Right Extremities: Color=Normal Lower Left Extremities: Color=Normal Neurological: State=Alert, Ox3, ALFARO Respiration: Resp=20 B/min, SpO2=92 % 16:07:38 HR=76 bpm, JFJX=465/90 mmhg, SpO2=92.0 %, Resp=20 B/min, Pain=0, Bonny=10, Jennings=2 16:08:24 No case complications noted. 16:08:32 Case complication noted. 16:08:36 Cine recording checked. Radial Compression Device Used. 11 mLs of air placed in BAND, RADIAL COMPRESSION TR SHORT 24 2 4CM. Affected 16:08:37 hand 92 % O2 saturation. 16:08:44 Implantable Device card placed in patient's chart. 16:09:15 Bedside Report will be given. 16:13:27 180 mg BRILINTA given in lab by Christ York, ROYA via Oral. Ordered by Antolin Willingham 16:15:24 Patient moved to [facility] End Study - Contrast Media Used In Study Contrast Total Opened (mL) Total Used (mL) Total Wasted (mL) Omnipaque 135 135 0 End Study - Maximum Contrast Load Max Contrast Load (mL) 578.6 End Study - Radiation Exposure Fluoro Time (minutes) 8.4 End Study - Patient Disposition Complications Transferred To Interventional Outcome No Telemetry Bed successful
[2017-05-27] MEDS ORDERED: MORPHINE SULFATE 4 MG/ML INJ IV PUSH PRN (16:30)
[2017-05-27] MEDS ORDERED: oxyCODONE/ACETAMINOPHEN 10 MG/325 MG TAB PO PRN (16:30)
[2017-05-27] MEDS ORDERED: oxyCODONE/ACETAMINOPHEN 5 MG/325 MG TAB PO PRN (16:30)
[2017-05-27] MEDS ORDERED: MISC INFORMATION XX ONE (16:30)
[2017-05-27] MEDS ORDERED: ACETAMINOPHEN 325 MG TAB PO PRN (16:30)
[2017-05-27] MEDS ORDERED: PILL SPLITTER OTHER PRN (16:45)
[2017-05-27] MEDS: METOPROLOL TARTRATE 25 MG TAB PO SCH (20:23)
[2017-05-27] MEDS: TICAGRELOR 90 MG TAB PO SCH (20:23)
[2017-05-27] MEDS ORDERED: ATORVASTATIN 80 MG TAB PO SCH (21:00)
[2017-05-28] VITALS (13 sets, daily range): BP systolic 113–142; BP diastolic 60–87; PULSE 68–89; RESP 16–18; TEMP 97.9–98.3; O2SAT 94–98
[2017-05-28 05:41] LABS: AUTOMATED NEUTROPHIL # 7.2 TH/MM3 (1.8-7.7); BASOPHIL % 0.3 % (0.0-2.0); EOSINOPHIL # 0.5 TH/MM3 (0-0.4); EOSINOPHIL % 4.7 % (0.0-4.0); HEMATOCRIT 47.4 % (39.0-51.0); HEMOGLOBIN 16.8 GM/DL (13.0-17.0); LYMPH % 19.3 % (9.0-44.0); LYMPHOCYTE # 2.1 TH/MM3 (1.0-4.8); MEAN CELL VOLUME 98.1 FL (80.0-100.0); MEAN CORPUSCULAR HEMOGLOBIN 34.7 PG (27.0-34.0); MEAN CORPUSCULAR HGB CONC 35.4 % (32.0-36.0); MONO % 11.1 % (0.0-8.0); MONOCYTE # 1.2 TH/MM3 (0-0.9); NEUT % 64.6 % (16.0-70.0); PLATELET COUNT 160 TH/MM3 (150-450); RED BLOOD COUNT 4.83 MIL/MM3 (4.50-5.90); RED CELL DISTRIBUTION WIDTH 12.4 % (11.6-17.2); WHITE BLOOD COUNT 11.1 TH/MM3 (4.0-11.0)
[2017-05-28 06:04] LABS: BICARBONATE 25.9 MEQ/L (21.0-32.0); CALCIUM 9.1 MG/DL (8.5-10.1); CREATININE 0.86 MG/DL (0.60-1.30)
[2017-05-28] MEDS ORDERED: ASPIRIN 81 MG CHEW TAB PO SCH (09:00)
[2017-05-28] MEDS: TICAGRELOR 90 MG TAB PO SCH (09:18)
[2017-05-28] MEDS: METOPROLOL TARTRATE 25 MG TAB PO SCH (09:18)
[2017-05-28] MEDS: LISINOPRIL 20 MG TAB PO SCH (09:18)
[2017-05-28] MEDS: amLODIPine BESYLATE 5 MG TAB PO SCH (09:18)
[2017-05-28] MEDS: SODIUM CHLORIDE 0.9% FLUSH 10 ML FLUSH IV FLUSH SCH (09:19)
--- NOTE | 2017-05-28 09:30 | HHI.PR ---
Subjective Remarks This is a pleasant 47 y/o male with Hypertension, Tobacco dependence, who came to ER with Chest pain, status post Cardiac Catheterization, not performed, any angioplasty or Stent placement, for this reason discussed face to face with Doctor Maulik, recommended for discharge will continue medical management with Brillinta and Aspirin. Objective Vital Signs Date Time Temp Pulse Resp B/P (MAP) Pulse Ox O2 Delivery O2 Flow Rate FiO2 05/28/17 07:25 97 Room Air 05/28/17 07:25 97.9 78 18 140/70 (93) 97 05/28/17 07:25 78 05/28/17 07:25 78 05/28/17 06:00 89 05/28/17 05:00 75 05/28/17 04:00 68 05/28/17 04:00 98.3 68 18 113/60 (77) 98 05/28/17 04:00 Room Air 05/28/17 03:00 69 05/28/17 02:00 74 05/28/17 01:00 76 05/28/17 00:00 Room Air 05/28/17 00:00 98.1 75 18 135/87 (103) 97 05/28/17 00:00 75 05/27/17 23:00 77 05/27/17 22:00 80 05/27/17 21:00 86 05/27/17 20:00 98.4 76 20 151/93 (112) 98 05/27/17 20:00 76 05/27/17 18:00 95 05/27/17 17:00 88 05/27/17 16:35 98.6 75 18 153/99 (117) 96 05/27/17 16:00 69 05/27/17 11:45 98.0 83 18 128/76 (93) 93 I/O 05/27/17 05/27/17 05/27/17 05/28/17 05/28/17 05/28/17 07:00 15:00 23:00 07:00 15:00 23:00 Intake Total 480 ml 480 ml Output Total 800 ml Balance 480 ml -320 ml Intake Oral 480 ml 480 ml Output Urine Total 800 ml # Voids 3 # Bowel Movements 0 Result Diagram: 05/28/17 0502 05/28/17 0502 Imaging Last Impressions Myocardial Perfusion Scan Nuc Med 05/27/17 0000 Signed Impressions: Service Date/Time: Saturday, May 27, 2017 09:44 - 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 2. Scintigraphic findings suggest focal ischemia in the high inferoseptal wall. This is only identified on 2 or 3 slices. 3. Anterolateral hypokinesis with a reduced ejection fraction of 46%%. RISK CATEGORY: Intermediate (1-3%% Annual Mortality Rate) Guanako Rodas MD Chest X-Ray 05/26/17 0000 Signed Impressions: Service Date/Time: May 13:05 - CONCLUSION: 1. No acute cardiopulmonary findings are identified. Poncho Ugarte MD Procedures Cardiac Catheterization Other Results Laboratory Tests Test 05/26/17 12:40 05/26/17 20:00 05/28/17 05:02 Prothrombin Time 10.2 SEC Prothromb Time International Ratio 1.0 RATIO Activated Partial Thromboplast Time 27.8 SEC Total Creatine Kinase 170 U/L Creatine Kinase MB 1.6 NG/ML Troponin I LESS THAN 0.02 NG/ML White Blood Count 11.1 TH/MM3 Red Blood Count 4.83 MIL/MM3 Hemoglobin 16.8 GM/DL Hematocrit 47.4 % Mean Corpuscular Volume 98.1 FL Mean Corpuscular Hemoglobin 34.7 PG Mean Corpuscular Hemoglobin Concent 35.4 % Red Cell Distribution Width 12.4 % Platelet Count 160 TH/MM3 Mean Platelet Volume 9.0 FL Neutrophils (%) (Auto) 64.6 % Lymphocytes (%) (Auto) 19.3 % Monocytes (%) (Auto) 11.1 % Eosinophils (%) (Auto) 4.7 % Basophils (%) (Auto) 0.3 % Neutrophils # (Auto) 7.2 TH/MM3 Lymphocytes # (Auto) 2.1 TH/MM3 Monocytes # (Auto) 1.2 TH/MM3 Eosinophils # (Auto) 0.5 TH/MM3 Basophils # (Auto) 0.0 TH/MM3 CBC Comment DIFF FINAL Differential Comment Blood Urea Nitrogen 11 MG/DL Creatinine 0.86 MG/DL Random Glucose 98 MG/DL Calcium Level 9.1 MG/DL Sodium Level 140 MEQ/L Potassium Level 3.9 MEQ/L Chloride Level 107 MEQ/L Carbon Dioxide Level 25.9 MEQ/L Anion Gap 7 MEQ/L Estimat Glomerular Filtration Rate 95 ML/MIN Objective Remarks GENERAL: Alert WN, WD, NAD, pleasant, male HEAD: NC, AT EYES: Sclera clear, conjunctiva without injection, pupils equal and round ENT: Mucous membranes pink and moist NECK: Supple, no masses, trachea midline CV: RRR, without murmur, rub, gallop, no JVD, S1-S2 no S3-S4. No carotid bruits RESP: Expiratory wheeze throughout bilateral, no crackles, wheeze, rhonchi, symmetrical chest rise, nonlabored, able to speak in full sentences ABD: Soft, NT, ND, no masses, positive bowel tones EXT: Pulses +24, no dependent edema MS: Normal tone 4 extremities, nontender, no obvious deformities, full range of motion NEURO: CN II through CN XII grossly intact, motor strength 5/5 PSYCH: A+O 3, pleasant affect, appropriate speech, mood, insight and judgment SKIN: Normal turgor, normal texture, no lesions, no rashes, brisk cap refill, even hair distribution Medications and IVs Current Medications Medications (Trade) Dose Ordered Sig/Rubio Route Start Time Stop Time Status Last Admin (NS Flush) 2 ml UNSCH PRN IV FLUSH 05/26/17 17:15 (NS Flush) 2 ml BID IV FLUSH 05/26/17 21:00 05/28/17 09:19 (Tylenol) 500 mg Q4H PRN PO 05/26/17 17:15 (Zofran Inj) 4 mg Q6H PRN IV PUSH 05/26/17 17:15 (Nitrostat Sl) 0.4 mg Q5M PRN SL 05/26/17 17:15 (Norvasc) 5 mg DAILY PO 05/26/17 19:00 05/28/17 09:18 (Prinivil) 20 mg DAILY PO 05/27/17 09:00 05/28/17 09:18 (Catapres) 0.1 mg Q6H PRN PO 05/26/17 19:00 05/26/17 20:16 (Albuterol Neb) 2.5 mg Q2HR NEB PRN INH 05/26/17 20:45 (Tylenol) 325 mg Q4H PRN PO 05/27/17 16:30 (Percocet 5-325 Mg) 1 tab Q4H PRN PO 05/27/17 16:30 (Percocet 10-325 Mg) 1 tab Q4H PRN PO 05/27/17 16:30 (Morphine Inj) 2 mg Q30M PRN IV PUSH 05/27/17 16:30 (Aspirin Chew) 81 mg DAILY PO 05/28/17 09:00 05/28/17 09:17 (Brilinta) 90 mg BID PO 05/27/17 21:00 05/28/17 09:18 (Lopressor) 12.5 mg BID PO 05/27/17 21:00 05/28/17 09:18 (Lipitor) 80 mg HS PO 05/27/17 21:00 05/27/17 20:23 (Pill Splitter) 1 ea UNSCH PRN OTHER 05/27/17 16:45 A/P Assessment and Plan #1 Atypical chest pain-admitted chest pain center. EKG No pathology, Cardiac enzymes negative x 3, status post abnormal Stress test status post cardiac Catheterization, not performed any angioplasty or stents. recommended for discharge by Doctor Maulik. will continue high intensity statins, Brillinta, Aspirin, Beta blockers, MARCO A inhibitors. #2 Hypertension-continue lisinopril, amlodipine, and clonidine, Beta blockers. #3 Tobacco use-she'll encouraged and stressed the importance of tobacco cessation. Started to quit smoking. Discussed tobacco free [place] services available. #4 alcohol abuse strongly recommended to stop behavior. Discharge Home now. Discharge Planning DC Home Les Red MD May 28, 2017 09:30
--- NOTE | 2017-05-28 11:41 | TR ---
Date Performed: 05/27/2017 Time Performed: 10:22:53 DOCTOR: Errol Guerrier DRUG LIST: CLINICAL HISTORY: CHEST PAIN REASON FOR TEST: REASON FOR ENDING: OBSERVATION: CONCLUSION: Nadeem protocol completed. Stopped sec to leg fatigue and reaching target heart rate. Maximum CJ=096 Target HR Achieved=85.0% Maximum LV=034/70 Total Exercise Time=6:31. No reprod chest pain. No ectopy. Good exercise tolerance. Normal bp response. Recovery quick and unremarkable. Nuclea r images pending. COMMENTS:
[2017-05-28] MEDS ORDERED: ATOR80TA45 PO (13:00)
[2017-05-28] MEDS ORDERED: METO25TA3 PO (13:00)
[2017-05-28] MEDS ORDERED: BRIL90TA PO (13:00)
[2017-05-28] MEDS ORDERED: ASPI81 PO (13:00)
--- NOTE | 2017-05-28 13:06 | HHI.DS ---
Discharge Summary Admission Date May 26, 2017 at 15:21 Discharge Date: May 28, 2017 Admitting Diagnosis Chest Pain (1) HTN (hypertension) ICD Code: I10 - HTN (hypertension) Diagnosis: Principal Status: Acute (2) Atypical chest pain ICD Code: R07.89 - Atypical chest pain Diagnosis: Principal Status: Acute Procedures Left heart catheterization. Brief History - From Admission 47-year-old male with history of hypertension and current smoker presents to emergency room for further evaluation of chest pressure. 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 During the afternoon noticed chest pressure. Location left anterior chest, radiation substernally. No associated symptoms nausea, vomiting, dyspnea, or diaphoresis. Holt dizzy. Duration chest pressure constant , dizziness resolved. No known precipitating or relieving factors. Endorses similar pain and symptoms in the past 3 years ago when diagnosed with hypertension. Since discomfort reminded him of when he was diagnosed with hypertension, drove to [facility] to check his blood pressure. Reports bp 170/100, therefore came to ER. Reports compliance with BP medications. CBC/BMP: 05/28/17 0502 05/28/17 0502 Significant Findings Laboratory Tests Test 05/26/17 12:40 05/26/17 17:05 05/26/17 20:00 05/28/17 05:02 Mean Corpuscular Hemoglobin 34.4 PG (27.0-34.0) 34.7 PG (27.0-34.0) Monocytes (%) (Auto) 10.6 % (0.0-8.0) 11.1 % (0.0-8.0) Monocytes # (Auto) 1.0 TH/MM3 (0-0.9) 1.2 TH/MM3 (0-0.9) Troponin I LESS THAN 0.02 NG/ML LESS THAN 0.02 NG/ML LESS THAN 0.02 NG/ML White Blood Count 11.1 TH/MM3 (4.0-11.0) Eosinophils (%) (Auto) 4.7 % (0.0-4.0) Eosinophils # (Auto) 0.5 TH/MM3 (0-0.4) Imaging Last Impressions Myocardial Perfusion Scan Nuc Med 05/27/17 0000 Signed Impressions: Service Date/Time: Saturday, May 27, 2017 09:44 - 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 2. Scintigraphic findings suggest focal ischemia in the high inferoseptal wall. This is only identified on 2 or 3 slices. 3. Anterolateral hypokinesis with a reduced ejection fraction of 46%%. RISK CATEGORY: Intermediate (1-3%% Annual Mortality Rate) Guanako Rodas MD Chest X-Ray 05/26/17 0000 Signed Impressions: Service Date/Time: May 13:05 - CONCLUSION: 1. No acute cardiopulmonary findings are identified. Poncho Ugarte MD PE at Discharge GENERAL: Alert WN, WD, NAD, pleasant, male HEAD: NC, AT EYES: Sclera clear, conjunctiva without injection, pupils equal and round ENT: Mucous membranes pink and moist NECK: Supple, no masses, trachea midline CV: RRR, without murmur, rub, gallop, no JVD, S1-S2 no S3-S4. No carotid bruits RESP: Expiratory wheeze throughout bilateral, no crackles, wheeze, rhonchi, symmetrical chest rise, nonlabored, able to speak in full sentences ABD: Soft, NT, ND, no masses, positive bowel tones EXT: Pulses +24, no dependent edema MS: Normal tone 4 extremities, nontender, no obvious deformities, full range of motion NEURO: CN II through CN XII grossly intact, motor strength 5/5 PSYCH: A+O 3, pleasant affect, appropriate speech, mood, insight and judgment SKIN: Normal turgor, normal texture, no lesions, no rashes, brisk cap refill, even hair distribution Hospital Course This is a pleasant 47 y/o male with Hypertension, Tobacco dependence, who came to ER with Chest pain, status post Cardiac Catheterization, not performed, any angioplasty or Stent placement, for this reason discussed face to face with Doctor Willingham, recommended for discharge will continue medical management with Brillinta and Aspirin. Assessment and Plan #1 Atypical chest pain-admitted chest pain center. EKG No pathology, Cardiac enzymes negative x 3, status post abnormal Stress test status post cardiac Catheterization, not performed any angioplasty or stents. recommended for discharge by Doctor Maulik. will continue high intensity statins, Brillinta, Aspirin, Beta blockers, MARCO A inhibitors. #2 Hypertension-continue lisinopril, amlodipine, and clonidine, Beta blockers. #3 Tobacco use-she'll encouraged and stressed the importance of tobacco cessation. Started to quit smoking. Discussed tobacco free [place] services available. #4 alcohol abuse strongly recommended to stop behavior. Discharge Home now. Discharge Planning DC Home Pt Condition on Discharge: Good Discharge Disposition: Discharge Home Discharge Time: <= 30 minutes Discharge Instructions DIET: Follow Instructions for: Heart Healthy Diet Activities you can perform: Regular-No Restrictions Les Red MD May 28, 2017 13:06
--- NOTE | 2017-05-28 14:04 | PD.CARD.PN ---
Subjective Subjective Remarks Doing well overall No complaints this morning Objective Medications Current Medications Aspirin (Aspirin Chew) 324 mg ONCE ONCE CHEW Last administered on 05/26/17 17: 05; Start 05/26/17 at 15:30; Stop 05/26/17 at 15:31; Status DC Nitroglycerin (Nitrostat Sl) 0.4 mg ONCE ONCE SL Last administered on at 17:05; Start 05/26/17 at 15:30; Stop 05/26/17 at 15:31; Status DC Sodium Chloride (NS Flush) 2 ml UNSCH PRN IV FLUSH FLUSH AFTER USING IV ACCESS ; Start 05/26/17 at 17:15; Stop 05/28/17 at 13:23; Status DC Sodium Chloride (NS Flush) 2 ml BID IV FLUSH Last administered on 05/28/17at 09: 19; Start 05/26/17 at 21:00; Stop 05/28/17 at 13:23; Status DC Acetaminophen (Tylenol) 500 mg Q4H PRN PO HEADACHE; Start 05/26/17 at 17:15; Stop 05/28/17 at 13:23; Status DC Ondansetron HCl (Zofran Inj) 4 mg Q6H PRN IV PUSH NAUSEA; Start 05/26/17 at 17: 15; Stop 05/28/17 at 13:23; Status DC Nitroglycerin (Nitrostat Sl) 0.4 mg Q5M PRN SL CHEST PAIN; Start 05/26/17 at 17: 15; Stop 05/28/17 at 13:23; Status DC Aspirin (Aspirin) 325 mg DAILY PO Last administered on 05/27/17at 08:13; Start at 09:00; Stop 05/27/17 at 16:21; Status DC Amlodipine Besylate (Norvasc) 5 mg DAILY PO Last administered on 05/28/17at 09: 18; Start 05/26/17 at 19:00; Stop 05/28/17 at 13:23; Status DC Lisinopril (Prinivil) 20 mg DAILY PO Last administered on 05/28/17at 09:18; Start 05/27/17 at 09:00; Stop 05/28/17 at 13:23; Status DC Clonidine (Catapres) 0.1 mg Q6H PRN PO SBP>180, DBP>95 Last administered on 05/26at 20:16; Start 05/26/17 at 19:00; Stop 05/28/17 at 13:23; Status DC Albuterol Sulfate (Albuterol Neb) 2.5 mg Q2HR NEB PRN INH SOB/WHEEZING; Start 05/26/17 at 20:45; Stop 05/28/17 at 13:23; Status DC Heparin Sodium/ Sodium Chloride 2,000 ml @ As Directed STK-MED ONCE IV FLUSH ; Start 05/27/17 at 14:57; Stop 05/27/17 at 14:58; Status DC Verapamil HCl (Isoptin Inj) 5 mg STK-MED ONCE .ROUTE Last administered on at 14:58; Start 05/27/17 at 14:58; Stop 05/27/17 at 14:59; Status DC Heparin Sodium (Porcine) (Heparin Inj) 10,000 units STK-MED ONCE .ROUTE Last administered on 05/27/17at 14:58; Start 05/27/17 at 14:58; Stop 05/27/17 at 14:59; Status DC Nitroglycerin 5 ml @ As Directed STK-MED ONCE .ROUTE Last administered on at 14:58; Start 05/27/17 at 14:58; Stop 05/27/17 at 14:59; Status DC Midazolam HCl (Versed Inj) 2 mg STK-MED ONCE .ROUTE Last administered on at 15:03; Start 05/27/17 at 15:03; Stop 05/27/17 at 15:04; Status DC Fentanyl Citrate (fentaNYL INJ) 100 mcg STK-MED ONCE .ROUTE Last administered on 05/27/17at 15:03; Start 05/27/17 at 15:03; Stop 05/27/17 at 15:04; Status DC Ticagrelor (Brilinta) 180 mg STK-MED ONCE PO Last administered on 05/27/17at 16: 02; Start 05/27/17 at 16:02; Stop 05/27/17 at 16:03; Status DC Acetaminophen (Tylenol) 325 mg Q4H PRN PO PAIN SCALE 1 TO 2; Start 05/27/17 at 16:30; Stop 05/28/17 at 13:23; Status DC Oxycodone/ Acetaminophen (Percocet 5-325 Mg) 1 tab Q4H PRN PO PAIN SCALE 3 TO 5; Start 05/27/17 at 16:30; Stop 05/28/17 at 13:23; Status DC Oxycodone/ Acetaminophen (Percocet 10-325 Mg) 1 tab Q4H PRN PO PAIN SCALE 6 TO 10; Start 05/27/17 at 16:30; Stop 05/28/17 at 13:23; Status DC Morphine Sulfate (Morphine Inj) 2 mg Q30M PRN IV PUSH BREAKTHROUGH PAIN; Start 05/27/17 at 16:30; Stop 05/28/17 at 13:23; Status DC Aspirin (Aspirin Chew) 81 mg DAILY PO Last administered on 05/28/17at 09:17; Start 05/28/17 at 09:00; Stop 05/28/17 at 13:23; Status DC Ticagrelor (Brilinta) 90 mg BID PO Last administered on 05/28/17at 09:18; Start 05/27/17 at 21:00; Stop 05/28/17 at 13:23; Status DC Miscellaneous Information 1 ONCE ONCE XX ; Start 05/27/17 at 16:30; Stop at 16:31; Status DC Metoprolol Tartrate (Lopressor) 12.5 mg BID PO Last administered on 05/28/17at 09:18; Start 05/27/17 at 21:00; Stop 05/28/17 at 13:23; Status DC Atorvastatin Calcium (Lipitor) 80 mg HS PO Last administered on 05/27/17at 20:23 ; Start 05/27/17 at 21:00; Stop 05/28/17 at 13:23; Status DC Miscellaneous (Pill Splitter) 1 ea UNSCH PRN OTHER SEE LABEL COMMENTS; Start at 16:45; Stop 05/28/17 at 13:23; Status DC Iohexol (OMNIPAQUE 350 INJ ([employer])) 100 ml STK-MED ONCE OTHER ; Start at 15:22; Stop 05/27/17 at 16:31; Status DC Iohexol (OMNIPAQUE 350 INJ ([employer])) 50 ml STK-MED ONCE OTHER ; Start 05/26/17 at 15:22; Stop 05/27/17 at 16:31; Status DC Vital Signs / I&O Vital Signs Date Time Temp Pulse Resp B/P (MAP) Pulse Ox O2 Delivery O2 Flow Rate FiO2 05/28/17 12:00 80 05/28/17 12:00 80 05/28/17 12:00 98.0 80 16 142/74 (96) 98 05/28/17 12:00 98 Room Air 05/28/17 10:00 76 05/28/17 09:36 94 21 05/28/17 09:00 68 05/28/17 08:00 70 05/28/17 07:25 97 Room Air 05/28/17 07:25 97.9 78 18 140/70 (93) 97 05/28/17 07:25 78 05/28/17 07:25 78 05/28/17 06:00 89 05/28/17 05:00 75 05/28/17 04:00 68 05/28/17 04:00 98.3 68 18 113/60 (77) 98 05/28/17 04:00 Room Air 05/28/17 03:00 69 05/28/17 02:00 74 05/28/17 01:00 76 05/28/17 00:00 Room Air 05/28/17 00:00 98.1 75 18 135/87 (103) 97 05/28/17 00:00 75 05/27/17 23:00 77 05/27/17 22:00 80 05/27/17 21:00 86 05/27/17 20:00 98.4 76 20 151/93 (112) 98 05/27/17 20:00 76 05/27/17 18:00 95 05/27/17 17:00 88 05/27/17 16:35 98.6 75 18 153/99 (117) 96 05/27/17 16:00 69 I/O 05/27/17 05/27/17 05/27/17 05/28/17 05/28/17 05/28/17 07:00 15:00 23:00 07:00 15:00 23:00 Intake Total 480 ml 480 ml Output Total 800 ml Balance 480 ml -320 ml Intake Oral 480 ml 480 ml Output Urine Total 800 ml # Voids 3 # Bowel Movements 0 Physical Exam GENERAL: NAD, AAOx3 SKIN: Warm and dry. HEAD: Atraumatic. Normocephalic. EYES: Pupils equal and round. No scleral icterus. No injection or drainage. ENT: No nasal bleeding or discharge. Mucous membranes pink and moist. NECK: Trachea midline. No JVD. CARDIOVASCULAR: Regular rate and rhythm. RESPIRATORY: No accessory muscle use. Clear to auscultation. Breath sounds equal bilaterally. GASTROINTESTINAL: Abdomen soft, non-tender, nondistended. Hepatic and splenic margins not palpable. MUSCULOSKELETAL: Extremities without clubbing, cyanosis, or edema. No obvious deformities. Right radial no hematoma, neurovascularly intact distally NEUROLOGICAL: Awake and alert. No obvious cranial nerve deficits. Motor grossly within normal limits. Five out of 5 muscle strength in the arms and legs. Normal speech. PSYCHIATRIC: Appropriate mood and affect; insight and judgment normal. Laboratory Laboratory Tests Test 05/28/17 05:02 White Blood Count 11.1 TH/MM3 Red Blood Count 4.83 MIL/MM3 Hemoglobin 16.8 GM/DL Hematocrit 47.4 % Mean Corpuscular Volume 98.1 FL Mean Corpuscular Hemoglobin 34.7 PG Mean Corpuscular Hemoglobin Concent 35.4 % Red Cell Distribution Width 12.4 % Platelet Count 160 TH/MM3 Mean Platelet Volume 9.0 FL Neutrophils (%) (Auto) 64.6 % Lymphocytes (%) (Auto) 19.3 % Monocytes (%) (Auto) 11.1 % Eosinophils (%) (Auto) 4.7 % Basophils (%) (Auto) 0.3 % Neutrophils # (Auto) 7.2 TH/MM3 Lymphocytes # (Auto) 2.1 TH/MM3 Monocytes # (Auto) 1.2 TH/MM3 Eosinophils # (Auto) 0.5 TH/MM3 Basophils # (Auto) 0.0 TH/MM3 CBC Comment DIFF FINAL Differential Comment Blood Urea Nitrogen 11 MG/DL Creatinine 0.86 MG/DL Random Glucose 98 MG/DL Calcium Level 9.1 MG/DL Sodium Level 140 MEQ/L Potassium Level 3.9 MEQ/L Chloride Level 107 MEQ/L Carbon Dioxide Level 25.9 MEQ/L Anion Gap 7 MEQ/L Estimat Glomerular Filtration Rate 95 ML/MIN Assessment and Plan Problem List: (1) CAD (coronary artery disease) ICD Codes: I25.10 - Atherosclerotic heart disease of [place] coronary artery without angina pectoris (2) Abnormal stress test ICD Codes: R94.39 - Abnormal result of other cardiovascular function study (3) HTN (hypertension) ICD Codes: I10 - HTN (hypertension) Status: Acute Assessment and Plan 1) Chest pain concerning for unstable angina/abnormal stress test PCI of mid to distal dominant LCx with [place] MARCO A ASA/Brilinta Discussed importance of checking on Brilinta refills, and if too expensive will call to change to Plavix Con't MARCO A-I Started on BB/Statin 2) Tobacco cessation 3) Cardiovascularly stable for discharge Will follow up in the office with me in 2-4 weeks Plan outpatient echocardiogram Antolin Willingham DO May 28, 2017 14:04
--- NOTE | 2017-05-28 14:23 | MB ---
cc: Antolin Willingham DO DATE OF CONSULT: 05/28/2017 REASON FOR CONSULTATION: Chest pain, abnormal stress test. HISTORY OF PRESENT ILLNESS: Guanako Bailey is a pleasant 47-year-old male who woke up feeling funny in the morning. He went to work and during the afternoon, he started noticing chest pressure. It was on the left side of his chest, radiating substernally. He denies nausea, vomiting, dyspnea or diaphoresis. He did not notice anything that made it better or worse. He had similar type symptoms around 3 years ago and was diagnosed with hypertension. He went to a [facility] to check his blood pressure and it was 170/100 and so he came into the emergency room. While here, he underwent stress testing which showed possible ischemia and so I was consulted to consider cardiac catheterization. PAST MEDICAL HISTORY: 1. Hypertension. 2. Tobacco abuse. PAST SURGICAL HISTORY: [place] extraction. ALLERGIES: NO KNOWN DRUG ALLERGIES. MEDICATIONS: 1. Clonidine 0.1 mg every night. 2. Norvasc 5 mg daily. 3. Lisinopril 20 mg daily. FAMILY HISTORY: Mother had CABG at the age of 60 SOCIAL HISTORY: Smokes 1 pack a day. He drinks 5-6 beers a night. Denies drug abuse. REVIEW OF SYSTEMS: Fourteen systems were reviewed, including osteopathic. Pertinent positives and negative above, otherwise negative. PHYSICAL EXAMINATION: VITAL SIGNS: Temperature 98.0, heart rate 83, blood pressure 128/76, respirations 18, pulse ox 93% on room air. GENERAL: The patient appeared well, no acute distress. Alert, awake and oriented x 3. HEENT: Extraocular muscles intact. Mucous membranes moist. NECK: Supple. No JVD at 45 degrees. No carotid bruits heard bilaterally. Carotid upstroke is brisk in nature. HEART: Regular rate and rhythm. Positive first and second heart sounds with no noted murmurs, gallops or rubs. LUNGS: Clear to auscultation bilaterally. No wheezes, rales or rhonchi. ABDOMEN: Soft, nontender, nondistended. No organomegaly noted. EXTREMITIES: Show no clubbing, cyanosis or edema. Femoral and distal pulses intact bilaterally. NEUROLOGIC: No focal deficits. SKIN: Warm, dry and intact. OSTEOPATHICALLY: No kyphoscoliosis, lordosis or paraspinal tender points. LABORATORY STUDIES: Hemoglobin 16.5, hematocrit 46.8, platelets 170. Potassium 3.8, BUN 9, creatinine 0.76. Troponin negative x 3. Electrocardiogram (05/26/2017 at 2016) sinus rhythm, sinus arrhythmia, nonspecific ST-T wave changes. IMPRESSIONS: 1. Chest pain concerning for coronary insufficiency. 2. Abnormal stress test. 3. Hypertension. 4. Tobacco abuse. RECOMMENDATIONS: 1. Mr. Bailey presented with chest pain concerning for coronary insufficiency and underwent stress testing, which showed possible ischemia in the high inferior septal wall as well as an old lateral wall infarct. Because of this, he will be recommended cardiac catheterization. 2. Risks, benefits and alternatives were explained to him and he consents to such. 3. He will continue on his current medications for blood pressure management. 4. I spoke to him for greater than 3 minutes about tobacco cessation. Thank you for allowing me to see Guanako Bailey. If there are any questions, please do not hesitate to call. Antolin Willingham DO VGP/TONYA , 10:05 AM , 02:22 PM
--- NOTE | 2017-05-28 17:24 | MA ---
cc: Antolin Willingham 05/27/2017 DATE OF PROCEDURE: 05/27/2017 PROCEDURE PERFORMED: Left heart catheterization, coronary angiogram, moderate sedation 45 minutes, [place] drug-eluting stent (2.25 x 18) to distal left circumflex. PREPROCEDURE DIAGNOSES: Chest pain concerning for coronary insuffiencey, abnormal stress test. POSTPROCEDURE DIAGNOSES: Coronary artery disease, status post [place] drug-eluting stent (2.25 x 18) to distal left circumflex. MEDICATIONS: Versed 1 mg, fentanyl 50 mcg, Heparin 6700 units, verapamil 2.5 mg, nitro 200 mcg, Brilinta 180 mg. CONTRAST USED: 135 mL. FLUOROSCOPY: 8.4 minutes. MODERATE SEDATION: 45 minutes. ESTIMATED BLOOD LOSS: 10 mL. PROCEDURAL SUMMARY: Guanako Bailey is a pleasant 47-year-old male who presented to [facility] emergency room due to chest pain. He underwent stress testing which showed possible ischemia and so he was recommended cardiac catheterization. Risks, benefits and alternatives were explained to him and consented as such. He was brought to the lab and prepped in the usual sterile fashion. Right radial artery was accessed using a modified Seldinger technique and placement of a 5/6 [place] slender sheath. This was easily aspirated and flushed. A JR was advanced over a J-wire to the ascending aorta and across the aorta valve for measurement of left ventricular pressure. This was pulled back across the aortic valve showing no significant gradient of aortic stenosis. JR4 was used for selective angiography of the right coronary artery system. This was exchanged out for a JL3.5 which was used for selective angiography of the left coronary artery system. JL3.5 was removed over a J-wire. Please seen notes below for intervention. FINDINGS: LEFT MAIN: Normal size vessel with adequate reflux bifurcating into an LAD and circumflex. LAD: Normal size vessel with mild luminal irregularities throughout the proximal portion. Mid portion has a 30% disease. It gives off 2 small diagonals with no significant disease. LEFT CIRCUMFLEX: Dominant vessel. Overall large with no disease throughout the proximal or mid portion. First obtuse marginal is 100% occluded with [id number] collaterals. Distal to the takeoff of the second obtuse marginal, there is a 90% stenosis before the third obtuse marginal/PDA. RCA: Small nondominant vessel. LVEDP: 6. INTERVENTION: Because of the significance of disease in his mid to distal left circumflex as well as the area of ischemia on stress testing, I felt that it was reasonable to intervene on this lesion. An EBU 3.5 guide was engaged into the left main. The patient was given Heparin as anticoagulant. A BMW wire was advanced into the distal portion of the PDA. A compliant balloon (2 x 10) was then used to predilate the lesion. An [place] drug-eluting stent (2.25 x 18) was then placed over the lesion and inflated. This was postdilated with a noncompliant balloon (2.25 x 12). Final angiogram shows a well apposed stent with no perforations or dissections. The patient was given Brilinta before leaving the catheterization lab. He left the veterinary laboratory technician cardiovascularly stable. IMPRESSIONS: 1. Coronary artery disease status post [place] drug-eluting stent (2.225 x 18) to the distal left circumflex. 2. Hypertension. 3. Tobacco abuse. RECOMMENDATIONS: 1. Mr. Bailey underwent PCI of his left circumflex and will be placed on aspirin and Brilinta therapy. 2. We spoke about refills of Brilinta and if too expensive, he will call the office to be switched to Plavix. 3. He will continue on his MARCO A inhibitor therapy. He will be added beta tiffanie and statin therapy. 4. He will be watched overnight and if stable in the morning, discharged home for followup in the office with me for further risk stratification as well as echocardiogram. Thank you for allowing me to see Guanako Bailey. If there are any questions, please do not hesitate to call. Antolin Willingham DO VGP/TONYA , 10:55 AM , 05:23 PM
== END 2017-05-28 13:22 | disposition home or self-care (01) ==
LOC: NEPC 11:50 → NEDA 15:21 → NEPFCDU 18:18 → HCIS 05-27 15:02
PROVIDERS: ADMIT Internal Medicine; ATTEND Internal Medicine
DX: R07.89 Other chest pain (principal); R06.2 Wheezing; I25.119 Atherosclerotic heart disease of native coronary artery with unspecified angina pectoris; I10 Essential (primary) hypertension; I49.9 Cardiac arrhythmia, unspecified; R94.39 Abnormal result of other cardiovascular function study; F17.200 Nicotine dependence, unspecified, uncomplicated; Z79.899 Other long term (current) drug therapy
CPT/HCPCS: 71046; 78452; 80048; 82550; 82552; 84484; 85002; 85025; 85610; 85730; 92928; 93005; 93017; 93458; 99152; 99153; 99285; A9502; C1725; C1769; C1874; C1887; C1893; G0378; J1644; J2250; J3010; Q9967